=== PATIENT | male | born 2000 | race Caucasian/White ===

== ENCOUNTER 2018-02-01 10:40 | Emergency (ER) | payer SELFPAY ==
[~2018-02-01] VITALS: Ht 182.9 cm; Wt 86.4 kg
[2018-02-01 11:00] LABS: BASO % 0.6 % (0.0-2.0); EOS # 0.1 (0.0-0.7); EOS % 1.6 % (0-4.0); GRAN # 3.8 (1.4-6.5); GRAN % 61.3 % (42.2-75.2); HEMATOCRIT 48.2 % (36.0-47.0); HEMOGLOBIN 16.5 g/dl (12.5-16.1); LYMPH # 1.7 (1.2-3.4); LYMPH % 27.3 % (20.0-51.0); MEAN CELL VOLUME 83 fl (80.0-95.0); MEAN CORPUSCULAR HEMOGLOBIN 28 pg (26.0-32.0); MEAN CORPUSCULAR HGB CONC 34 g/dl (33.0-37.0); MEAN PLATELET VOLUME 9.2 fl (7.4-10.4); MONO # 0.6 (0.1-0.6); MONO % 8.9 % (1.7-9.3); PLATELET COUNT 239 K/mm3 (130-400); RED BLOOD COUNT 5.81 M/mm3 (4.20-5.60); REDCELL DISTRIBUTION WIDTH-CV 12.5 % (11.5-14.5)
[2018-02-01 11:13] LABS: ALBUMIN 4.8 gm/dL (3.5-5.0); BILIRUBIN,TOTAL 0.4 mg/dL (0.0-1.0); CREATININE, serum 0.93 mg/dL (0.66-1.25); MAGNESIUM 1.8 mg/dL (1.6-2.3); POTASSIUM 4.3 mmol/L (3.4-5.0); TOTAL PROTEIN 8.3 gm/dL (6.4-8.2)
[2018-02-01 12:39] VITALS: BP 128/74; PULSE 62; TEMP 97.8
== END 2018-02-01 12:40 | disposition home or self-care (01) ==
LOC: COL.ER 10:40
PROVIDERS: Emergency Medicine
DX: R56.9 Unspecified convulsions (principal)

== ENCOUNTER 2018-02-04 14:18 | Emergency (ER) | payer SELFPAY ==
[~2018-02-04] VITALS: Ht 182.9 cm; Wt 80.5 kg
[2018-02-04 14:24] VITALS: BP 132/71; TEMP 98.6
[2018-02-04 16:21] VITALS: PULSE 66
== END 2018-02-04 16:22 | disposition home or self-care (01) ==
LOC: COL.ER 14:18
DX: F07.81 Postconcussional syndrome (principal); F90.9 Attention-deficit hyperactivity disorder, unspecified type; F41.9 Anxiety disorder, unspecified

== ENCOUNTER 2018-04-22 16:29 | Emergency (ER) | payer SELFPAY ==
[~2018-04-22] VITALS: Ht 180.3 cm; Wt 86.4 kg
[2018-04-22 16:38] VITALS: BP 146/82; TEMP 97.8
[2018-04-22] MEDS ORDERED: CEPHALEXIN500 M1 PO (17:25)
[2018-04-22 18:35] VITALS: PULSE 82
== END 2018-04-22 18:35 | disposition home or self-care (01) ==
LOC: COL.ER 16:29
DX: S60.451A Superficial foreign body of left index finger, initial encounter (principal); F90.9 Attention-deficit hyperactivity disorder, unspecified type; F41.9 Anxiety disorder, unspecified; W45.8XXA Other foreign body or object entering through skin, initial encounter

== ENCOUNTER 2018-09-26 13:25 | Emergency (ER) | payer SELFPAY ==
[~2018-09-26] VITALS: Ht 177.8 cm; Wt 90.9 kg
[~2018-09-26 13:25] MED LIST: CEPHALEXIN500 M1 PO
[2018-09-26 13:26] VITALS: TEMP 98.9
[2018-09-26] MEDS ORDERED: TOPAMAX50 MG PO (13:48)
[2018-09-26 14:20] LABS: BASO % 0.4 % (0.0-2.0); EOS % 0.4 % (0-4.0); GRAN # 5.8 (1.4-6.5); GRAN % 73.7 % (42.2-75.2); HEMATOCRIT 46.4 % (36.0-47.0); HEMOGLOBIN 16.2 g/dl (12.5-16.1); LYMPH # 1.5 (1.2-3.4); LYMPH % 19.1 % (20.0-51.0); MEAN CELL VOLUME 82 fl (80.0-95.0); MEAN CORPUSCULAR HEMOGLOBIN 29 pg (26.0-32.0); MEAN CORPUSCULAR HGB CONC 35 g/dl (33.0-37.0); MEAN PLATELET VOLUME 8.8 fl (7.4-10.4); MONO # 0.5 (0.1-0.6); MONO % 6.1 % (1.7-9.3); PLATELET COUNT 216 K/mm3 (130-400); RED BLOOD COUNT 5.66 M/mm3 (4.20-5.60); REDCELL DISTRIBUTION WIDTH-CV 12.1 % (11.5-14.5)
[2018-09-26] MEDS ORDERED: KEPPRA 500MG500 MG PO (14:22)
[2018-09-26 14:30] LABS: ALBUMIN 4.5 gm/dL (3.5-5.0); BILIRUBIN,TOTAL 0.6 mg/dL (0.0-1.0); CALCIUM 9.8 mg/dL (8.4-10.2); CREATININE, serum 0.97 mg/dL (0.66-1.25); POTASSIUM 4.5 mmol/L (3.4-5.0)
[2018-09-26 14:47] LABS: PROLACTIN 28.7 ng/mL (3.7-17.9)
[2018-09-26 15:42] VITALS: BP 128/76; PULSE 82
== END 2018-09-26 15:43 | disposition home or self-care (01) ==
LOC: COL.ER 13:25
PROVIDERS: Physician Assistant
DX: G40.909 Epilepsy, unspecified, not intractable, without status epilepticus (principal); F41.9 Anxiety disorder, unspecified; F90.9 Attention-deficit hyperactivity disorder, unspecified type
CPT/HCPCS: J1953; J2060; J7030

== ENCOUNTER 2018-11-24 22:26 | Emergency (ER) | payer OTHER ==
[~2018-11-24] VITALS: Ht 177.8 cm; Wt 93.2 kg
[~2018-11-24 22:26] MED LIST changes: +KEPPRA 500MG500 MG PO; +TOPAMAX50 MG PO
[2018-11-24 22:28] VITALS: TEMP 97.9
[2018-11-24 23:17] LABS: BASO % 0.6 % (0.0-2.0); EOS # 0.1 (0.0-0.7); EOS % 2.1 % (0-4.0); GRAN # 3.5 (1.4-6.5); GRAN % 51.7 % (42.2-75.2); HEMATOCRIT 46.5 % (36.0-47.0); HEMOGLOBIN 16.2 g/dl (12.5-16.1); LYMPH # 2.5 (1.2-3.4); LYMPH % 36.9 % (20.0-51.0); MEAN CELL VOLUME 83 fl (80.0-95.0); MEAN CORPUSCULAR HEMOGLOBIN 29 pg (26.0-32.0); MEAN CORPUSCULAR HGB CONC 35 g/dl (33.0-37.0); MONO # 0.6 (0.1-0.6); MONO % 8.6 % (1.7-9.3); PLATELET COUNT 216 K/mm3 (130-400); RED BLOOD COUNT 5.62 M/mm3 (4.20-5.60); REDCELL DISTRIBUTION WIDTH-CV 12.3 % (11.5-14.5)
[2018-11-24 23:30] LABS: ALANINE AMINOTRANSFERASE 29 U/L (21-72); ALBUMIN 4.4 gm/dL (3.5-5.0); ALKALINE PHOSPHATASE 87 U/L (50-136); ANION GAP 11 mmol/L (7-16); AST,SGOT 22 U/L (15-37); BILIRUBIN,TOTAL 0.4 mg/dL (0.0-1.0); BLOOD UREA NITROGEN 17 mg/dL (9-20); CALCIUM 9.5 mg/dL (8.4-10.2); CARBON DIOXIDE 21 mmol/L (22-30); CHLORIDE 110 mmol/L (98-107); GLUCOSE 128 mg/dL (74-106); POTASSIUM 3.5 mmol/L (3.4-5.0); SODIUM 142 mmol/L (137-145); TOTAL PROTEIN 7.9 gm/dL (6.4-8.2)
[2018-11-24 23:45] LABS: PROLACTIN 22.7 ng/mL (3.7-17.9)
[2018-11-24 23:46] LABS: ALCOHOL(ethanol),MEDICAL < 10 mg/dL
[2018-11-25] VITALS (114 sets, daily range): BP systolic 136; BP diastolic 80; PULSE 95; O2SAT 94–99
[2018-11-25] MEDS ORDERED: KEPPRA750 MG PO (00:32)
[2018-11-25] MEDS ORDERED: TOPAMAX 100MG100 M1 PO (19:29)
[2018-11-26] VITALS (449 sets, daily range): O2SAT 93–99
== END 2018-11-25 01:17 | disposition home or self-care (01) ==
LOC: COL.ER 22:26
PROVIDERS: Emergency Medicine
DX: G40.909 Epilepsy, unspecified, not intractable, without status epilepticus (principal)
CPT/HCPCS: J1953; J2060; J7030

== ENCOUNTER 2018-11-25 17:52 | Inpatient (IN) | payer OTHER ==
[~2018-11-25] VITALS: Ht 177.8 cm; Wt 95.0 kg
[~2018-11-25 17:52] MED LIST changes: +KEPPRA750 MG PO
[2018-11-25 18:00] LABS: BASO # 0.1 (0.0-0.2); BASO % 0.6 % (0.0-2.0); EOS # 0.1 (0.0-0.7); EOS % 1.7 % (0-4.0); GRAN # 4.8 (1.4-6.5); HEMATOCRIT 48.8 % (36.0-47.0); LYMPH # 2.8 (1.2-3.4); LYMPH % 33.3 % (20.0-51.0); MEAN CELL VOLUME 83 fl (80.0-95.0); MEAN CORPUSCULAR HEMOGLOBIN 29 pg (26.0-32.0); MEAN CORPUSCULAR HGB CONC 35 g/dl (33.0-37.0); MEAN PLATELET VOLUME 8.6 fl (7.4-10.4); MONO # 0.6 (0.1-0.6); MONO % 7.3 % (1.7-9.3); PLATELET COUNT 240 K/mm3 (130-400); RED BLOOD COUNT 5.86 M/mm3 (4.20-5.60); REDCELL DISTRIBUTION WIDTH-CV 12.3 % (11.5-14.5)
[2018-11-25 18:12] LABS: ALBUMIN 4.8 gm/dL (3.5-5.0); BILIRUBIN,TOTAL 0.5 mg/dL (0.0-1.0); CALCIUM 9.8 mg/dL (8.4-10.2); CREATININE, serum 1.1 (0.66-1.25); POTASSIUM 3.9 mmol/L (3.4-5.0); TOTAL PROTEIN 8.6 gm/dL (6.4-8.2)
[2018-11-25 18:28] LABS: PROLACTIN 18.6 ng/mL (3.7-17.9)
[2018-11-25 18:41] LABS: TRICYCLIC ANTIDEPRESS URINE NEGATIVE
[2018-11-25] MEDS ORDERED: TOPAMAX 100MG100 M1 PO (19:29)
--- NOTE | 2018-11-25 19:50 | NUR ---
Report received by Abby in ED. Pt room is currently being cleaned at this time, will call when completed.
--- NOTE | 2018-11-25 20:30 | NUR ---
Pt arrived via stretcher assisted X1 staff ED staff member. Pt ambulated with a steady gait from the stretcher to ICU07 bed. Shorts are currently on under hospital gown. Pt and staff are experiencing a language barrier. Assessment completed and family obatined from the waiting room to assist with further assessment.
[2018-11-25 20:48] VITALS: BP 140/84; PULSE 85; TEMP 98
--- NOTE | 2018-11-25 21:15 | NUR ---
This nurse was called into pt room by family via call light. Upon entering the room and older family member was standing at pt bedside with pt laying supine in a 30 degree semifowlers position. Under the blankets there was movement noted. This nurse removed the blankets and noted some mild shaking to the right hand. Pt had his eyes closed. Pupils equal, round and reactive at this time. Would not respond to name, Q tip in either nare or sternal rub. Muscles were not noted to be tensed up in the upper extremities. VS remained stable at this time. No change in BP, HR or resp status. Once pt woke up after a few moments and 1mg Ativan IV pt reported knowing of the seizure activity but was unable to respond.
--- NOTE | 2018-11-25 22:00 | NUR ---
During neuro assessment pt was able to state "hospital" for location although when asked what town pt hesitated and slowly replied "[place]". Correction was provided and pt stated "oh yeah". Pt was unable to state the current year but reported who the president was.
[2018-11-26] VITALS (94 sets, daily range): BP systolic 97–152; BP diastolic 44–84; PULSE 68–102; TEMP 97.7–98.3; O2SAT 89–98
[2018-11-26 05:33] LABS: BASO % 0.6 % (0.0-2.0); EOS # 0.2 (0.0-0.7); EOS % 2.6 % (0-4.0); GRAN # 3.1 (1.4-6.5); GRAN % 49.8 % (42.2-75.2); HEMATOCRIT 45.2 % (36.0-47.0); HEMOGLOBIN 15.4 g/dl (12.5-16.1); LYMPH # 2.4 (1.2-3.4); LYMPH % 38.7 % (20.0-51.0); MEAN CELL VOLUME 84 fl (80.0-95.0); MEAN CORPUSCULAR HEMOGLOBIN 29 pg (26.0-32.0); MEAN CORPUSCULAR HGB CONC 34 g/dl (33.0-37.0); MEAN PLATELET VOLUME 8.8 fl (7.4-10.4); MONO # 0.5 (0.1-0.6); MONO % 8.1 % (1.7-9.3); PLATELET COUNT 220 K/mm3 (130-400); RED BLOOD COUNT 5.41 M/mm3 (4.20-5.60); REDCELL DISTRIBUTION WIDTH-CV 12.4 % (11.5-14.5)
[2018-11-26 05:43] LABS: CALCIUM 9.1 mg/dL (8.4-10.2); CREATININE, serum 1.04 (0.66-1.25); POTASSIUM 3.6 mmol/L (3.4-5.0)
--- NOTE | 2018-11-26 06:00 | NUR ---
Pt continues to know "hospital" for location, was able to state "[place]" as well. Was not able to recall the month or the year and knew "Vickie" as president.
--- NOTE | 2018-11-26 07:20 | NUR ---
Bedside report provided to Jose Roberto RUGGIERO. Pt resting in bed with brother at bedside.
--- NOTE | 2018-11-26 08:00 | NUR ---
Shift assessment complete at this time. Plan of care reviewed at bedside with patient and brother. Additional time taken to address any other needs or concerns. Vitals stable. Pt reports chest pressure that is similar to pre-aura associated with seizures. Pressure reported as resolved after administration of antiepileptics at 0815. Denies any other discomfort. Will continue to monitor.
--- NOTE | 2018-11-26 10:25 | NUR ---
SW attended clinical rounds to discuss discharge planning. Patient's brother was also present and acting as a mine engineer. Patient lives independently at home with his brother. Patient's brother reports their parents live in [place]. Patient's brother reports patient goes to the [facility] for primary care. Patient does not have insurance but his brother reports they are working to apply for medicaid. SW reported that the financial counselor will meet with patient later today. Doctor reports patient will be able move to the medical floor today. SW does not anticipate any discharge needs but will follow as needed.
--- NOTE | 2018-11-26 11:45 | NUR ---
PATIENT ADMITED INTO ROOM 354 FROM ICU WITH SEIZURES. PATIENT HAS HX OF SEIZURES SINCE 2016. PATIENT IS [place] SPEAKING ONLY. BROTHER REPORTS THE PATIENT HAS BEEN HAVING LOTS OF SEIZURES LATELY. KEPRA DOSE INCREASED IN ICU. PATIENT SCHEUDLED FOR EEG TODAY. PATIENT'S LAST KNOWN SEIZURE WAS LAST NIGHT IN ICU AND LASTED APPROX 2 MIN. PATIENT IS A&O. SR ON TELE. HEAD TO TOE ASSESSMENT COMPLETE. SEIZURE PRECAUTIONS INPLACE. IV FLUIDS INFUSING VIA PUMP INTO LEFT AC IV. ORIENTED TO ROOM. CALL LIGHT IN REACH.
--- NOTE | 2018-11-26 12:30 | NUR ---
TELE CALLED STATING THEY NOTED SEIZURE LIKE ACTIVITY. UPON ENTERING ROOM PATIENT STATED HE IS ABOUT TO HAVE A SEIZURE. BROTHER GONE. GAVE PRN ATIVAN 1MG. OXY MASK APPLIED AT 3L. VSS. NOYOLA NOTIFIED. WILL CONTINUE TO MONITOR.
--- NOTE | 2018-11-26 12:31 | NUR ---
ALSO NOTIFIED. NO NEW ORDERS. WANTS EEG DELAYED UNTIL TOMORROW.
--- NOTE | 2018-11-26 12:33 | NUR ---
PATIENT EYES CLOSED WITH RAPID EYE MOVEMENT NOTED. LOCALIZED SEIZURE. PATIENT VERY STILL.
--- NOTE | 2018-11-26 12:34 | NUR ---
PATIENT OPENED EYES AND IS HOLDING HIS CHEST SAYS "DELOR". PHYSICIAN NOTIFIED. MONITORING.
--- NOTE | 2018-11-26 17:58 | NUR ---
TELE CALLED REPORTING SEIZURE LIKE ACTIVITY AGAIN. PATIENT'S EYES CLOSED WITH RAPID EYE MOVEMENT. NO JERKING MOVEMENTS, SEEMS TO BE MORE LOCALIZED. GAVE PRN IV ATIVAN 1MG. OXYGEN MASK STILL ON AT 2L WITH SATS AT 100%. VSS. SEIZURE PRECAUTIONS INPLACE. FAMILY AT BEDSIDE. WILL MONITOR.
--- NOTE | 2018-11-26 18:00 | NUR ---
PATIENT'S EYES NOW OPEN. PATIENT RESTING
--- NOTE | 2018-11-26 19:48 | NUR ---
At approximately 1900, patient called and stated he felt a seizure was comming on. Tele called at the same time noting seizure activity. Upon entering room, patient was no responding. Eyes closed with eyelids fluttering. Arms shaking. Notified Dr. Morgan who was on floor at the time of seizure activity. Oxygen on patient via oxymask at 2 L/min. Pulse 102, oxygen 100%, BP 152/84. Pupils round and react to light. Given 1 mg [address]ivan IV per Dr. Morgan. Also gave order to change 2100 dose of Keppra PO to IV now, as well as D/C PO Vimbat and change to IV. Order for STAT prolactin. Called and notified lab. Called pharmacy and brought up Kepra and Vimbat. Patient remained unresponsive until 1919. Dr. Morgan gave order to transfer patient to ICU.
--- NOTE | 2018-11-26 20:55 | NUR ---
Report given to ICU nurse at approximately 2004. Patient's family updated and patient went to the bathroom. Taken down to ICU bed 5 at approximately 2049.
--- NOTE | 2018-11-26 21:13 | NUR ---
IN ROOM WITH PATIENT AT THIS TIME. PATIENT REACHED FOR HIS CHEST AND SAID 'MY CHEST HURTS' THEN BEGAN TO SEIZE. WHEN THE PATIENT BEGAN TO SEIZE HIS EYES CLOSED AND YOU COULD SEE THEM TWITCHING UNDER HIS EYELIDS. I LOOKED AT HIS PUPILS AND THEY WERE REACTIVE TO LIGHT. PATIENT DID NOT REQUIRE SUCTIONING AT THIS TIME. PATIENTS O2 SATURATION DID DROP TO 89% SO I APPLIED AN OXY MASK WITH 2L O2 AND HIS 02 SATURATION CAME UP TO 98%. VITAL SIGNS WERE HR- 80, RR-20, BP-136/81, O2-98%. I CALLED HIRA CALDERÓN TO INFORM HER OF THE SITUATION AND THAT THE PATIENT WAS STILL SEIZING AFTER 20 MINUTES. SHE TOLD ME TO CALL NEUROLOGY, GIVE ANOTHER DOSE OF ATIVAN, AND TRY TO PUT A Q-TIP IN THE PATIENTS NOSTRILS. WHEN THE Q-TIP WAS INSERTED THE PATIENT OPENED HIS EYES BRIEFLY AND CONTINUED TO SEIZE. I THEN CALLED DR. NOYOLA AND HE MADE AJUSTMENTS TO THE PATIENTS MEDICATIONS. PATIENT FINALLY STOPPED SEIZING AT 2155 AND WAS ABLE TO ANSWER QUESTIONS. I ADMINISTERED TWO MG TOTAL OF ATIVAN. SEE EMAR.
[2018-11-27] VITALS (973 sets, daily range): BP systolic 96–135; BP diastolic 52–70; PULSE 64–96; TEMP 36.4–36.9; O2SAT 86–99
--- NOTE | 2018-11-27 07:22 | NUR ---
gave report to jenna power.
--- NOTE | 2018-11-27 08:31 | NUR ---
Dr Morgan at bedside this AM, okay to do the EEG today, RT Ella notified.
--- NOTE | 2018-11-27 12:10 | NUR ---
First visit from the upset operator. No needs right now.
--- NOTE | 2018-11-27 14:19 | NUR ---
Followed up with Dr Morgan after EEG complete, new orders to switch pt to PO meds and okay to transfer to floor unit if bed is needed. Also spoke with Dr Vee letting him know testing was complete, new orders for tylenol prn for a headache post EEG, he will be coming down to the unit to see the patient shortly
--- NOTE | 2018-11-27 16:47 | NUR ---
Called to room by pt's cousins that were visiting stating pt was having chest pain. Walked into room and pt was grabbing left side of chest. Stated pt's name and asked what was going on. Pt closed eyes and began fluttering eyelashes, eyelids. Pt verbally not responding. Lifted pt's arm of bed and placed above face. When released, pt pulled arm back to avoid hitting face. Dr Vee was called and stated to poke a q-tip up pt's nose. Upon doing so, pt immediately opened eyes and began talking, answering simple questions. Pt stated he was in hospital but did not know what time it was. Pt then closed eyes and began flutter eyelashes, eyelids again. Asked pt who had been in room with him and he stated "cousins" while eyelashes/eyelids still fluttering. VSS. Will continue to follow.
--- NOTE | 2018-11-27 19:13 | NUR ---
got report from jenna power.
--- NOTE | 2018-11-27 19:14 | NUR ---
Report given to Tana RUGGIERO and care transfered.
[2018-11-28] VITALS (465 sets, daily range): BP systolic 100–127; BP diastolic 53–82; PULSE 60–76; TEMP 97.5–98.5; O2SAT 90–98
--- NOTE | 2018-11-28 03:30 | NUR ---
PATIENT IS CURRENTLY WATCHING A MOVIE ON HIS IPAD. DENIES ANY PAIN AT THIS TIME. VITALS STABLE. WILL CONTINUE TO MONITOR.
--- NOTE | 2018-11-28 06:54 | NUR ---
GAVE REPOR TO MONIK HUGHES.
--- NOTE | 2018-11-28 07:17 | NUR ---
Report received from Tana RUGGIERO and care resumed. Pt resting quietly at this time.
--- NOTE | 2018-11-28 08:05 | NUR ---
Dr Morgan in to see pt at this time.
[2018-11-28] MEDS ORDERED: KEPPRA1000 MG PO (09:03)
[2018-11-28] MEDS ORDERED: VIMPAT100 MG PO (09:04)
[2018-11-28] MEDS ORDERED: ATIVAN 1MG T1 MG/TAB PO (09:11)
--- NOTE | 2018-11-28 09:15 | NUR ---
Dr Vee in to see pt at this time. Will plan for discharge withi neurology and psychiatry follow ups.
--- NOTE | 2018-11-28 12:09 | NUR ---
PT given discharge instructions. INT dc'd. Pt walked out to car for discharge at 1200.
== END 2018-11-28 12:00 | disposition home or self-care (01) | DRG 101 ==
LOC: COL.ER 17:52 → ICU 18:15 → MEDICAL 18:15 → ICU 11-26 20:45
PROVIDERS: Emergency Medicine; Nurse Practitioner Family; ADMIT Hospitalist
DX: G40.909 Epilepsy, unspecified, not intractable, without status epilepticus (principal); F32.9 Major depressive disorder, single episode, unspecified; F41.9 Anxiety disorder, unspecified
CPT/HCPCS: OP; 99231-AI; 99239; C9254; J1630; J1650; J1953; J2060; J7030; J7120

== ENCOUNTER 2022-04-09 01:32 | Emergency (ER) | payer SELFPAY ==
[~2022-04-09] VITALS: Ht 180.3 cm; Wt 109.1 kg
[~2022-04-09 01:32] MED LIST changes: +ATIVAN 1MG T1 MG/TAB PO; +KEPPRA1000 MG PO; +TOPAMAX 100MG100 M1 PO; +VIMPAT100 MG PO
[2022-04-09 01:40] VITALS: TEMP 98.6
[2022-04-09] MEDS ORDERED: KEPPRA 500MG500 MG PO (01:56)
[2022-04-09 01:57] VITALS: BP 137/77; PULSE 75
== END 2022-04-09 02:14 | disposition home or self-care (01) ==
LOC: COL.ER 01:32
DX: R56.9 Unspecified convulsions (principal); Z28.310 Unvaccinated for COVID-19

== ENCOUNTER → 2022-04-10 | Emergency (ER) | payer SELFPAY | LOC: COL.ER 15:54 | DX: R69 Illness, unspecified (principal) ==